=== PATIENT | male | born 1985 | race Caucasian/White ===

== ENCOUNTER 2017-03-05 20:15 | Emergency (ER) | payer BC ==
--- NOTE | 2017-03-05 20:25 | PDOC ---
Rapid Medical Evaluation Time Seen by Provider: 03/05/17 20:23 Medical Evaluation: 03/05/17 20:24 I have performed a brief in person evaluation of this patient. The patient presents with chief complaint of : left middle digit laceration with knife cutting an avocado pit. Pertinent PE findings: left middle digit with laceration to the tip of the finger, bleeding controlled with pressure I have ordered the following: none The patient will proceed to the ER for further evaluation.
[2017-03-05 20:27] VITALS: BP 140/96; PULSE 65; TEMP 98.5; BMI 25.8
[2017-03-05] MEDS ORDERED: DIPHTH,PERTUSS(ACELL),TET 0.5 ML DISP.SYRIN IM ONE (22:18)
--- NOTE | 2017-03-05 22:18 | PDOC ---
History of Present Illness <Abram Pimentel - Last Filed: 03/05/17 22:42> - General History Source: Patient Exam Limitations: No Limitations - History of Present Illness Initial Comments: 03/05/17 23:06 Patient is a 31-year-old male with no past medical history who presents to emergency department today after sustaining a cut to his left third finger. Patient states he was cutting an avocado when the knife slipped. He was able to control the bleeding from the finger prior to arrival in the emergency department. Admits to pain of the finger. Denies numbness and tingling to the finger, weakness of the finger. Patient does not remember his last tetanus shot. <Rosalinda Tavares - Last Filed: 03/06/17 19:15> - General Chief Complaint: Laceration Stated Complaint: LACERATION Time Seen by Provider: 03/05/17 20:23 Past History <Abram Pimentel - Last Filed: 03/05/17 22:42> - Travel Traveled outside of the country in the last 30 days: No Close contact w/someone who was outside of country & ill: No - Past Medical History COPD: No - Immunization History Immunization Up to Date: Yes - Suicide/Smoking/Psychosocial Hx Smoking History: Never smoked <Rosalinda Tavares - Last Filed: 03/06/17 19:15> - Past Medical History Allergies/Adverse Reactions: Allergies Allergy/AdvReac Type Severity Reaction Status Date / Time No Known Allergies Allergy Verified 03/05/17 20:25 Home Medications: Ambulatory Orders NK [No Known Home Medication] 03/05/17 Review of Systems - Review of Systems Able to Perform ROS?: Yes Comments:: 03/05/17 23:08 CONSTITUTIONAL: Absent: fever, chills, diaphoresis, generalized weakness, malaise, loss of appetite MUSCULOSKELETAL: Present: L 3rd finger pain Absent: myalgia, arthralgia, joint swelling SKIN: Present: laceration to L 3rd finger. Absent: rash, itching, pallor HEMATOLOGIC/IMMUNOLOGIC: Absent: easy bleeding, easy bruising, lymphadenopathy, frequent infections NEUROLOGIC: Absent: headache, focal weakness or paresthesias, dizziness, unsteady gait, seizure, mental status changes, bladder or bowel incontinence Is the patient limited [place] proficient: No <Rosalinda Tavares - Last Filed: 03/06/17 19:15> *Physical Exam - Vital Signs Last Vital Signs Temp Pulse Resp BP Pulse Ox 98.5 F 65 18 140/96 99 03/05/17 20:26 03/05/17 20:26 03/05/17 20:26 03/05/17 20:26 03/05/17 20:26 <Abram Pimentel - Last Filed: 03/05/17 22:42> - Vital Signs Last Vital Signs Temp Pulse Resp BP Pulse Ox 98.5 F 65 18 140/96 99 03/05/17 20:26 03/05/17 20:26 03/05/17 20:26 03/05/17 20:26 03/05/17 20:26 - Physical Exam Comments: 03/05/17 23:10 GENERAL: Well developed, well nourished. Awake and alert. No acute distress. MUSCULOSKELETAL Pt. able to flex and extend L 3rd finger. Normal range of motion at all joints. No bony deformities or tenderness. No CVA tenderness. EXTREMITIES: No cyanosis. No clubbing. No edema. No calf tenderness. SKIN: 3cm laceration to the distal L 3rd finger. Hemostasis controlled at this time. Warm and dry. Normal capillary refill. No rashes. No jaundice. NEUROLOGICAL: Alert, awake, appropriate. Cranial nerves 2-12 intact. No deficits to light touch and temperature in face, upper extremities and lower extremities. No motor deficits in the in face, upper extremities and lower extremities. Normoreflexic in the upper and lower extremities. Normal speech. Toes are down- going bilaterally. Gait is normal without ataxia. <Rosalinda Tavares - Last Filed: 03/06/17 19:15> Procedures - Laceration/Wound Repair Left Distal 3rd digit Wound Length: 2.6 to 5.0 cm Wound Explored: clean Wound's Depth, Shape: superficial Irrigated w/ Saline: Yes Anesthesia: 1% Lidocaine Amount of Anesthetic (ccs): 1 Wound Debrided: minimal Wound Repaired With: Sutures Suture Size/Type: 5:0, proline Number of Sutures: 7 Layer Closure: No Number of Deep Layer Sutures: 0 Sterile Dressing Applied: Yes Splint Applied: No Sling Applied: No <Abram Pimentel - Last Filed: 03/05/17 22:42> Medical Decision Making - Medical Decision Making 03/05/17 23:12 Patient is a 31-year-old male with no past medical history who presents to the emergency department today for laceration to his left third distal finger. Patient is right-hand dominant. Laceration was superficial, no tendon involvement. Laceration was repaired under sterile procedure by ED resident Dr. Pimentel. Please see procedure note. Tetanus shot was updated at this time. Patient was instructed to return to the ED in 7-10 days to have his stitches removed. <Rosalinda Tavares - Last Filed: 03/06/17 19:15> *DC/Admit/Observation/Transfer <Abram Pimentel - Last Filed: 03/05/17 22:42> - Discharge Dispostion Admit: No <Rosalinda Tavares - Last Filed: 03/06/17 19:15> Diagnosis at time of Disposition: Laceration - Discharge Dispostion Disposition: HOME Condition at time of disposition: Improved - Referrals Referrals: Sridhar Li MD [Staff Physician] - - Patient Instructions Printed Discharge Instructions: DI for Laceration Repair Additional Instructions: Your laceration was repaired today. Her tetanus shot was updated today. Please keep the area clean and dry. Do not soak the finger. Please wear a glove when showering to avoid getting the cut wet. When you wash her hands please wash with gentle soap and water and pat dry. Do not cover the laceration after today to let the air he help heal the wound. Please return in 7-10 days to have the stitches removed. Return to the emergency department if you have fevers, chills, signs of infection including redness around the site, or pus drainage coming from the finger, or any changes in your symptoms. - Post Discharge Activity Forms/Work/School Notes: Back to Work
== END 2017-03-05 22:56 | disposition home or self-care (01) ==
LOC: JERFT 20:15
PROC: 3E0234Z Introduction of Serum, Toxoid and Vaccine into Muscle, Percutaneous Approach (ICD-10-PCS; principal; 2017-03-05)
PROC: 0HQGXZZ Repair Left Hand Skin, External Approach (ICD-10-PCS; 2017-03-05)
DX: S61.213A Laceration without foreign body of left middle finger without damage to nail, initial encounter (principal); W26.0XXA Contact with knife, initial encounter; Y93.G1 Activity, food preparation and clean up; Y92.9 Unspecified place or not applicable
CPT/HCPCS: 90715; 99281-25

== ENCOUNTER 2017-06-10 20:37 | Emergency (ER) | payer BC ==
[2017-06-10 20:50] VITALS: BP 151/81; PULSE 63; TEMP 98; BMI 25.8
[2017-06-10] MEDS ORDERED: KETOROLAC TROMETHAMINE 60 MG/2 ML VIAL ONE (21:14)
[2017-06-10] MEDS ORDERED: KETOROLAC TROMETHAMINE 60 MG/2 ML VIAL IM ONE (21:16)
--- NOTE | 2017-06-10 21:25 | PDOC ---
History of Present Illness - General Chief Complaint: Pain Stated Complaint: BACK PAIN Time Seen by Provider: 06/10/17 21:07 - History of Present Illness Initial Comments: 06/10/17 21:19 History of Present Illness: 31 yo M with no PMH presents to [facility] with acute onset back pain x 5 days. 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 He reports that the pain is worse with movement. Denies any trauma or injury or any recent heavy lifting. PMH: none Allergies: NKDA PSH: no recent epidural placement or other surgery Soc hx: Denies alcohol, tobacco, drug use. Review of Systems: GENERAL/CONSTITUTIONAL: No fever or chills. No weakness. No weight change. HEAD, EYES, EARS, NOSE AND THROAT: No change in vision. No ear pain or discharge. No sore throat. CARDIOVASCULAR: No chest pain or shortness of breath. RESPIRATORY: No cough, wheezing, or hemoptysis. GASTROINTESTINAL: No nausea, vomiting, diarrhea or constipation. No rectal bleeding. GENITOURINARY: No dysuria, frequency, or change in urination. MUSCULOSKELETAL: No bladder or bowel dysfunction. No weakness, difficulty walking. No joint or muscle swelling or pain. No neck or back pain. SKIN AND BREASTS: No rash or easy bruising. NEUROLOGIC: No headache, vertigo, loss of consciousness, or loss of sensation. PSYCHIATRIC: No depression or anxiety. ENDOCRINE: No increased thirst. No abnormal weight change. HEMATOLOGIC/LYMPHATIC: No anemia, easy bleeding, or history of blood clots. ALLERGIC/IMMUNOLOGIC: No hives or skin allergy. No latex allergy. General Appearance: positive: Appropriately Dressed. negative: Apparent Distress, no intoxication HEENT: positive: EOMI, DEON, Normal ENT Inspection, Normal Voice, TMs Normal, Pharynx Normal. No Palor of Conjunctivae, Photophobia, Scleral Icterus (R), Scleral Icterus (L) Neck: positive: Trachea midline, Normal Thyroid, Supple. No tenderness, rigidity, Carotid bruit, Stridor, Lymphadenopathy (R), Lymphadenopathy (L), Thyromegaly] Respiratory/Chest: positive: Lungs Clear, Normal Breath Sounds. No Chest Tenderness, Respiratory Distress, Accessory Muscle Use, Labored Respiration, Crackles, Rales, Rhonchi, Stridor, Wheezing, Dullness Cardiovascular: Regular Rhythm, Regular Rate, S1, S2. No JVD, Murmur, Bradycardia, Tachycardia Vascular Pulses: Dorsalis-Pedis (R): 2+, Doralis-Pedis (L): 2+] Gastrointestinal/Abdominal: positive for Normal Bowel Sounds, Flat, Soft. No Tenderness, Organomegaly, Pulsatile Mass, Distention, Guarding, Rebound, Hernia , Hepatomegaly, Spleenomegaly] Lymphatic: negative: Adenopathy, Tenderness] Musculoskeletal: Tenderness to left sided paravertebral musclesat level of T10- 12. Full ROM in all extremities. Normal capillary refill, distal pulses equal bilaterally. Stable pelvis. No tenderness, swelling, erythema, or deformity. No midline point tenderness to cervical, thoracic, lumbar spine. Negative straight leg test. Integumentary: Normal color, dry, warm. No cyanosis, erythema, jaundice or rash Neurologic: A&Ox3, follow commands, respond appropriately CN2-12: conjugate gaze, pupil round, equal and reactive to light. Visual field full to confrontation. EOMI without nystagmus, pursuit is smooth without saccade. Facial sensation and muscle activation intact bilaterally. Hearing intact bilaterally. Palate elevate symmetrically. Shoulder shrug and neck turn full strength. Tongue protrude midline. Motor: UE and LE strength 5/5 throughout bilaterally. Muscle tone and bulk normal. L shoulder abd 5/5 elbow F/E 5/5 wrist F/E 5/5 finger F/E 5/5 R shoulder abd 5/5 elbow F/E 5/5 wrist F/E 5/5 finger F/E 5/5 L hip F/E 5/5 knee F/E 5/5 ankle F/E 5/5 R hip F/E 5/5 knee F/E 5/5 ankle F/E 5/5 Sensory: pin prick & temp : BUE & BLE intact and equal bilaterally Vibration & propioception: intact bilaterally at 1st MCP and MTP joints. no sensory level noted on trunk Reflex: biceps brachioradialis triceps patellar achilles L 2+ 2+ 2+ 2+ 2+ R 2+ 2+ 2+ 2+ 2+ Plantar reflex downwards bilaterally. Cerebellar: Rapid-alternating movement with regular rhythm without bradykinesia. [id number] and [id number] intact bilaterally without dysmetria or overshoot. Gait narrow based. No shuffling. Full hip flexion and knee flexion. Negative Romberg No involuntary movement noted. No pronator drift. No clonus. Past History - Past Medical History Allergies/Adverse Reactions: Allergies Allergy/AdvReac Type Severity Reaction Status Date / Time No Known Allergies Allergy Verified 06/10/17 20:47 Home Medications: Ambulatory Orders Cyclobenzaprine HCl 10 mg PO HS PRN #10 tablet 06/10/17 Diclofenac Sodium 50 mg PO BID #20 tablet. 06/10/17 COPD: No Other medical history: Pt denies - Immunization History Immunization Up to Date: Yes - Suicide/Smoking/Psychosocial Hx Smoking History: Never smoked Have you smoked in the past 12 months: No Information on smoking cessation initiated: No Hx Alcohol Use: No Drug/Substance Use Hx: No Substance Use Type: None *Physical Exam - Vital Signs Last Vital Signs Temp Pulse Resp BP Pulse Ox 98.0 F 63 18 151/81 99 06/10/17 20:48 06/10/17 20:48 06/10/17 20:48 06/10/17 20:48 06/10/17 20:48 Medical Decision Making - Medical Decision Making 06/10/17 21:25 31 yo M with no PMH presents to [facility] with acute onset back pain x 5 days. -Toradol IM Valium rx sent to pharm Advised patient to take medication as prescribed and follow up with ortho if symptoms persist past 5-7 days. Advised patient of signs and symptoms for return to ED. Patient verbalized understanding and agrees to plan. *DC/Admit/Observation/Transfer Diagnosis at time of Disposition: Acute thoracic back pain - Discharge Dispostion Disposition: HOME Admit: No - Prescriptions Prescriptions: Cyclobenzaprine HCl 10 mg PO HS PRN #10 tablet PRN Reason: Back Pain Diclofenac Sodium 50 mg PO BID #20 tablet.dr - Referrals Referrals: Hong Pagan MD [Staff Physician] - - Patient Instructions Printed Discharge Instructions: DI for Thoracic Back Pain Additional Instructions: Please take medications as prescribed; as discussed, do NOT drink alcohol, drive , or operate machinery while taking cyclobenzaprine. If you develop any loss of bowel or bladder function, are unable to walk, or lose sensation in your legs , please go IMMEDIATELY to the nearest ER. - Post Discharge Activity
== END 2017-06-10 21:29 | disposition home or self-care (01) ==
LOC: JERFT 20:37
PROC: 3E0233Z Introduction of Anti-inflammatory into Muscle, Percutaneous Approach (ICD-10-PCS; principal; 2017-06-10)
DX: M54.6 Pain in thoracic spine (principal)
CPT/HCPCS: 99281-25